=== PATIENT | female | born 1960 | race Caucasian/White ===

== ENCOUNTER → 2021-01-17 | Outpatient (CLI) | payer BC ==
[2021-01-17 09:30] LABS: HEMOGLOBIN 14.8 gm/dl (12.3-15.3); RED BLOOD COUNT 4.83 M/UL (4.00-5.10); WHITE BLOOD COUNT 11.2 K/UL (4.5-11.0)
[2021-01-17 10:04] LABS: BUN/CREATININE RATIO 14 (0-10)
[2021-01-18 13:13] LABS: RHEUMATOID ARTHRITIS FACTOR <10.0 IU/mL (<14.0)
== END ==
LOC: LAB 07:58
PROVIDERS: Internal Medicine
DX: R76.8 Other specified abnormal immunological findings in serum (principal); M25.50 Pain in unspecified joint; Z79.1 Long term (current) use of non-steroidal anti-inflammatories (NSAID); M25.561 Pain in right knee; M25.551 Pain in right hip; M25.552 Pain in left hip; M16.11 Unilateral primary osteoarthritis, right hip; I83.93 Asymptomatic varicose veins of bilateral lower extremities
CPT/HCPCS: 36415; 73502; 73562; 80053; 83520; 85025; 85652; 86140; 86200; 86431

== ENCOUNTER → 2021-01-24 | Outpatient (CLI) | payer BC | LOC: EXRD 08:34 | DX: S69.91XA Unspecified injury of right wrist, hand and finger(s), initial encounter (principal) | CPT/HCPCS: 73110 ==

== ENCOUNTER → 2021-04-12 | Outpatient (CLI) | payer BC ==
[2021-04-12 08:41] LABS: HEMOGLOBIN 15.1 gm/dl (12.3-15.3); RED BLOOD COUNT 5.03 M/UL (4.00-5.10); WHITE BLOOD COUNT 11.3 K/UL (4.5-11.0)
[2021-04-13 09:15] LABS: A/G RATIO 1.7 (1.2-2.2); ALKALINE PHOSPHATASE, S 88 IU/L (44-121); ALT (SGPT) 36 IU/L (0-32); AST (SGOT) 27 IU/L (0-40); BILIRUBIN, TOTAL <0.2 mg/dL (0.0-1.2); BUN 8 mg/dL (6-24); BUN/CREATININE RATIO 12 (9-23); CALCIUM, SERUM 9.2 mg/dL (8.7-10.2); CARBON DIOXIDE, TOTAL 19 mmol/L (20-29); CHLORIDE, SERUM 103 mmol/L (96-106); CHOLESTEROL, TOTAL 173 mg/dL (100-199); CREATININE, SERUM 0.69 mg/dL (0.57-1.00); EGFR IF AFRICN AM 110 (>59); EGFR IF NONAFRICN AM 96 (>59); GLOBULIN, TOTAL 2.4 g/dL (1.5-4.5); GLUCOSE, SERUM 121 mg/dL (65-99); HDL CHOLESTEROL 36 mg/dL (>39); LDL CHOLESTEROL CALC 103 mg/dL (0-99); LDL/HDL RATIO 2.9 ratio (0.0-3.2); POTASSIUM, SERUM 4.6 mmol/L (3.5-5.2); PROTEIN, TOTAL, SERUM 6.5 g/dL (6.0-8.5); SODIUM, SERUM 139 mmol/L (134-144); T. CHOL/HDL RATIO 4.8 ratio (0.0-4.4); TRIGLYCERIDES 194 mg/dL (0-149); VITAMIN D, 25-HYDROXY 39.8 ng/mL (30.0-100.0)
== END ==
LOC: MAMO 03-29 07:40
PROVIDERS: Nurse Practitioner Family
DX: Z12.31 Encounter for screening mammogram for malignant neoplasm of breast (principal); E11.9 Type 2 diabetes mellitus without complications; E55.9 Vitamin D deficiency, unspecified; E53.8 Deficiency of other specified B group vitamins; R92.8 Other abnormal and inconclusive findings on diagnostic imaging of breast
CPT/HCPCS: 36415; 77063; 77067; 80053; 80061; 82607; 84439; 84443; 85025

== ENCOUNTER → 2021-08-15 | Outpatient (CLI) | payer BC | LOC: US 10:30 | DX: I87.2 Venous insufficiency (chronic) (peripheral) (principal); M79.662 Pain in left lower leg | CPT/HCPCS: 93971 ==

== ENCOUNTER 2021-10-09 14:43 | Observation (INO) | payer BC ==
[~2021-10-09] VITALS: Ht 160 cm; Wt 76.7 kg
[2021-10-09 16:00] LABS: HEMOGLOBIN 15.3 gm/dl (12.3-15.3); RED BLOOD COUNT 4.95 M/UL (4.00-5.10); WHITE BLOOD COUNT 16.3 K/UL (4.5-11.0)
[2021-10-09 16:25] LABS: BUN/CREATININE RATIO 12 (0-10)
[2021-10-09] MEDS ORDERED: LOSARTAN POTASS50 MG PO (17:58)
[2021-10-09] MEDS ORDERED: CARVEDILOL12.5 MG PO (17:58)
[2021-10-09] MEDS ORDERED: METFORMIN HCL1000 MG PO (17:59)
[2021-10-10 02:21] LABS: HEMOGLOBIN 13.8 gm/dl (12.3-15.3); RED BLOOD COUNT 4.6 M/UL (4.00-5.10); WHITE BLOOD COUNT 13.2 K/UL (4.5-11.0)
[2021-10-10 02:44] LABS: BUN/CREATININE RATIO 10 (0-10)
[2021-10-10] MEDS ORDERED: ATORVASTATIN CA20 MG PO (18:57)
[2021-10-10] MEDS ORDERED: ASPIRIN EC81 MG PO (18:57)
== END 2021-10-10 19:45 | disposition home or self-care (01) ==
LOC: ER1 14:43 → CDU 16:44 → MED SURG 4 20:29
PROVIDERS: Emergency Medicine; Physician Assistant; ADMIT Internal Medicine
DX: R55 Syncope and collapse (principal); R07.89 Other chest pain; Z20.822 Contact with and (suspected) exposure to COVID-19; Z86.16 Personal history of COVID-19; F17.210 Nicotine dependence, cigarettes, uncomplicated; I10 Essential (primary) hypertension; E11.9 Type 2 diabetes mellitus without complications; R11.10 Vomiting, unspecified; E78.5 Hyperlipidemia, unspecified; D72.829 Elevated white blood cell count, unspecified; Z79.84 Long term (current) use of oral hypoglycemic drugs; Z79.899 Other long term (current) drug therapy; Z88.1 Allergy status to other antibiotic agents
CPT/HCPCS: ECHO; 70450; 71045; 80048; 80053; 81001; 82550; 82553; 82962; 83735; 84484; 85025; 93005; 93270; 93306; 93880; 96374; 99285; G0378; J2405; U0002